=== PATIENT | female | born 1985 | race Caucasian/White ===

== ENCOUNTER 2016-05-11 16:01 | Outpatient (CLI) | payer OTHER ==
--- NOTE | 2016-05-11 16:53 | DIAGNOSTIC IMAGING REPORT ---
PROCEDURE: XR FOOT 3 VIEWS - RIGHT INDICATION: MULTIPLE JOINT COMPLAINTS TECHNIQUE: Three views. COMPARISON: None. FINDINGS: Osseous structures and joint spaces are normal. IMPRESSION: 1. Normal right foot.
--- NOTE | 2016-05-11 16:55 | DIAGNOSTIC IMAGING REPORT ---
PROCEDURE: XR ANKLE 3 OR 4 VIEWS - RIGHT INDICATION: MULTIPLE JOINT COMPLAINTS TECHNIQUE: Four views. COMPARISON: None. FINDINGS: Osseous structures and joint spaces are normal. IMPRESSION: 1. Normal right ankle.
--- NOTE | 2016-05-11 16:58 | DIAGNOSTIC IMAGING REPORT ---
PROCEDURE: XR WRIST 1 OR 2 VIEWS - RIGHT INDICATION: MULTIPLE JOINT COMPLAINTS TECHNIQUE: Two views of the right wrist COMPARISON: None FINDINGS: There is no fracture dislocation. Osseous structures and joint spaces are normal. IMPRESSION: 1. Normal
== END 2016-05-11 23:00 ==
LOC: XR SRH 16:01 → EDSTATUS 16:47 → XR SRH 23:00
DX: M25.9 Joint disorder, unspecified (principal)